=== PATIENT | male | born 1965 | race Caucasian/White ===

== ENCOUNTER 2019-11-01 04:00 | Emergency (ER) | payer MEDICARE, MEDICAID ==
[~2019-11-01] VITALS: Ht 177.8 cm; Wt 113.0 kg
[2019-11-01] MEDS ORDERED: KETOROLAC 30MG/ML VIAL IM ONE (04:30)
[2019-11-01 04:55] VITALS: BP 147/71
== END 2019-11-01 04:56 | disposition home or self-care (01) ==
LOC: ER 04:00
DX: K08.89 Other specified disorders of teeth and supporting structures (principal); F41.9 Anxiety disorder, unspecified; F32.9 Major depressive disorder, single episode, unspecified; F90.9 Attention-deficit hyperactivity disorder, unspecified type; Z98.890 Other specified postprocedural states; Z96.659 Presence of unspecified artificial knee joint
CPT/HCPCS: 96372; 99283; J1885

== ENCOUNTER 2019-11-11 17:23 | Emergency (ER) | payer MEDICARE, MEDICAID ==
[~2019-11-11] VITALS: Ht 172.7 cm; Wt 99.0 kg
[2019-11-11 17:45] VITALS: BP 136/84
== END 2019-11-11 21:00 | disposition left against medical advice (07) ==
LOC: ER 17:23
DX: H57.10 Ocular pain, unspecified eye (principal); Z53.21 Procedure and treatment not carried out due to patient leaving prior to being seen by health care provider

== ENCOUNTER 2024-03-05 15:59 | Emergency (ER) | payer MEDICARE, MEDICAID ==
[~2024-03-05] VITALS: Ht 180.3 cm; Wt 154.0 kg
[2024-03-05 16:05] VITALS: O2SAT 99
[2024-03-05] MEDS: IBUPROFEN 600MG TABLET PO ONE (17:59)
[2024-03-05 20:26] LABS: BASOPHILS % 0.4 % (0.0-2.0); EOSINOPHILS % 2.3 % (0.0-5.0); HEMATOCRIT. 40.8 % (42.0-52.0); LYMPHOCYTES % 22.2 % (20.0-50.0); MEAN CORPUSCULAR HEMOGLOBIN 32.9 pg (28.0-32.0); MEAN CORPUSCULAR HGB CONC 34.2 g/dL (31.0-37.0); MEAN CORPUSCULAR VOLUME 96.2 fL (80.0-94.0); MEAN PLATELET VOLUME 6.7 fl (7.4-10.4); MONOCYTES % 12.2 % (2.0-8.0); NEUTROPHILS % 62.9 % (40.0-76.0); PLATELET 240 x1000/uL (130-400); RED BLOOD CELL COUNT 4.24 mill/uL (4.7-6.1); RED CELL DISTRIBUTION WIDTH 14.2 % (11.6-14.6); WHITE BLOOD COUNT 6.7 x1000/uL (4.5-11.0)
[2024-03-05 20:35] LABS: INR 0.9; PROTHROMBIN TIME 10.3 sec (9.6-11.0)
[2024-03-05 20:36] LABS: CARBON DIOXIDE 28 mEq/L (21-32); CHLORIDE 107 mEq/L (98-107); POTASSIUM 4.4 mEq/L (3.5-5.1); SODIUM 139 mEq/L (136-145)
[2024-03-05 20:37] LABS: CALCIUM 9.3 mg/dL (8.7-10.4)
[2024-03-05 20:41] LABS: CREATININE 0.9 mg/dL (0.6-1.3); GLUCOSE 99 mg/dL (70-105)
[2024-03-05 20:42] LABS: UREA NITROGEN BLOOD 14 mg/dL (9-23)
[2024-03-05 20:43] LABS: TROPONIN I HIGH SENSITIVITY 6 ng/L (3.0-53)
[2024-03-05 20:45] LABS: ALANINE AMINOTRANSFERASE 44 IU/L (10-49); ASPARTATE AMINOTRANSFERASE 29 IU/L (<34)
[2024-03-05 20:46] LABS: ALBUMIN 4.3 g/dL (3.2-4.8); BILIRUBIN DIRECT 0.1 mg/dL (<=3.0); BILIRUBIN TOTAL 0.4 mg/dL (0.1-1.0)
[2024-03-05] MEDS ORDERED: AMOX1TAB16 MT (21:12)
[2024-03-05] MEDS ORDERED: IBUP-2029 MT (21:12)
[2024-03-05 21:35] VITALS: BP 155/89; PULSE 76; RESP 18; TEMP 36.72516; O2SAT 96
== END 2024-03-05 21:35 | disposition home or self-care (01) ==
LOC: ER 15:59
DX: L03.115 Cellulitis of right lower limb (principal); K02.9 Dental caries, unspecified; Z96.659 Presence of unspecified artificial knee joint; Z85.46 Personal history of malignant neoplasm of prostate
CPT/HCPCS: 36415; 71045; 80048; 80076; 83880; 84484; 85025; 93005; 93970; 99285